=== PATIENT | male | born 1950 | race Caucasian/White ===

== ENCOUNTER → 2018-08-27 | Day surgery (SDC) | payer MEDICARE ==
[~2018-08-27] MED LIST: Heparin 1,000 UNITS/ML VIAL ONE
--- NOTE | 2018-08-27 11:07 | SPC ---
SPC CVP LINE PICC INITIAL >5: 08/27/2018 12:00 AM PROCEDURE: Peripherally placed 46 cm dual lumen PICC line. PICC Line Placement: The left arm was prepped and draped in sterile fashion. One percent lidocaine was used for local anesthetic. Under fluoroscopic and ultrasound guidance, the left brachial vein was patent and accessed with a janine ropuncture needle. A guide wire was then advanced into the left brachial vein. A vascular sheath was then advanced over a guide wire, and a single lumen PICC line was trimmed. The PICC line was then advanced into the central venous system. A final placement film demonstrates the tip of the catheter terminated in the caval-atrial junction. After confirmation of the catheter position, the catheter was sutured in place at the skin entry site . There was no immediate complication. Total fluoroscopic time 0.5 minutes. Total exposure 1913 mgray/sq cm IMPRESSION: Peripheral placement of a single lumen power PICC line into the left brachial vein using fluoroscopic and ultrasound guidance.
== END ==
LOC: SPEC 08:30
PROVIDERS: ATTEND Internal Medicine Infectious Disease
PROC: 02HV33Z Insertion of Infusion Device into Superior Vena Cava, Percutaneous Approach (ICD-10-PCS; principal; 2018-08-27)
PROC: B548ZZA Ultrasonography of Superior Vena Cava, Guidance (ICD-10-PCS; 2018-08-27)
DX: M00.9 Pyogenic arthritis, unspecified (principal); M13.88 Other specified arthritis, other site
CPT/HCPCS: 36569; C1751; J1644

== ENCOUNTER 2018-08-28 15:00 | Day surgery (SDC) | payer MEDICARE ==
[~2018-08-28 15:00] MED LIST changes: -Heparin 1,000 UNITS/ML VIAL ONE; +Micafungin 100 MG in Sodium Chloride 0.9% 100 ML IVPB SCH
[2018-08-28 15:31] VITALS: BP 151/86; TEMP 98.5
== END 2018-08-28 16:11 | disposition home or self-care (01) ==
LOC: ONC/OP 15:00
PROVIDERS: ATTEND Internal Medicine Infectious Disease
DX: M00.9 Pyogenic arthritis, unspecified (principal); M13.88 Other specified arthritis, other site; Z79.2 Long term (current) use of antibiotics
CPT/HCPCS: 96365; J2248; J3490

== ENCOUNTER 2019-05-24 08:12 | Outpatient (CLI) | payer MEDICARE ==
--- NOTE | 2019-05-24 10:35 | MRI ---
Exam: Right upper extremity MRI with and without IV contrast HISTORY: Direct infection right hand, fungal infection right index finger metacarpal phalangeal joint region FINDINGS: Multiplanar, multisequence MRI examination of the hand is performed. There are fairly extensive destr uctive changes involving the second metatarsal phalangeal joint with some interosseous cystic changes as well as what appears to be more chronic appearing joint effusion consistent with septic ar thritis. Abnormal T1 hypointense and T2 hyperintense marrow signal changes extend into the distal aspect of the proximal phalanx and proximally into the midportion of the second metacarpal raising co ncern for osteomyelitis. No evidence for a drainable abscess. The extensor tendon is partially obscured overlying the second metatarsal phalangeal joint but appears to be grossly intact. IMPRESSION: Marked arthrosis with associated deformity of the second metatarsal phalangeal joint and abnormal yuri nt effusion evidence for septic arthritis. Abnormal marrow signal involving the distal second metacarpal and proximal phalanx certainly concerni ng for osteomyelitis. No evidence for focal drainable abscess.
[2019-05-24] MEDS ORDERED: Magnevist 469MG/ML 20 ML VIAL ONE (14:40)
== END 2019-05-24 08:13 | disposition home or self-care (01) ==
LOC: BICMRI 08:12
PROVIDERS: ATTEND Internal Medicine Infectious Disease
DX: M01.X41 Direct infection of right hand in infectious and parasitic diseases classified elsewhere (principal); M00.9 Pyogenic arthritis, unspecified
CPT/HCPCS: 82565; A9579

== ENCOUNTER 2021-12-22 07:57 | Outpatient (CLI) | payer MEDICARE ==
[2021-12-22] MEDS ORDERED: Magnevist 469MG/ML 20 ML VIAL ONE (14:34)
== END 2021-12-22 07:58 | disposition home or self-care (01) ==
LOC: TBSIIMAG 07:57
PROVIDERS: ATTEND Urology
DX: C61 Malignant neoplasm of prostate (principal)
CPT/HCPCS: 72197; 82565; A9579

== ENCOUNTER → 2025-02-10 | Outpatient (CLI) | payer MEDICARE | LOC: PET 12:30 | PROVIDERS: ATTEND Radiology Radiation Oncology | DX: C61 Malignant neoplasm of prostate (principal) | CPT/HCPCS: 78815; A9595 ==